=== PATIENT | female | born 1995 | race Caucasian/White ===

== ENCOUNTER 2021-04-23 03:07 | Emergency (ER) | payer OTHER ==
[~2021-04-23] VITALS: Ht 170.2 cm; Wt 54.4 kg
[2021-04-23] MEDS ORDERED: [UNRECOGNIZED DRUG - SUPPLY] (03:26)
== END 2021-04-23 13:50 | disposition home or self-care (01) ==
LOC: ER 03:07
DX: K52.9 Noninfective gastroenteritis and colitis, unspecified (principal); R50.9 Fever, unspecified; Z11.52 Encounter for screening for COVID-19

== ENCOUNTER 2024-06-30 12:56 | Emergency (ER) | payer OTHER ==
[~2024-06-30] VITALS: Ht 170.2 cm; Wt 59.0 kg
[~2024-06-30 12:56] MED LIST: [UNRECOGNIZED DRUG - SUPPLY]
[2024-06-30] MEDS ORDERED: KETOROLAC TROMETHAMINE 60 MG VIAL IM ONE ×2 (13:36→13:45)
[2024-06-30 14:22] LABS: HEMATOCRIT 32.2 % (36.0-45.00); HEMOGLOBIN 10.6 g/dL (12.0-15.00); MEAN CELL VOLUME 80.3 fL (80.00-100.00); MEAN CORPUSCULAR HEMOGLOBIN 26.3 pg (27.00-32.0); MEAN CORPUSCULAR HGB CONC 32.7 g/dl (32.0-36.0); PLATELET COUNT 361 K/uL (150-450); RED BLOOD COUNT 4.01 M/uL (4.00-6.00); RED CELL DISTRIBUTION WIDTH 13.8 % (11.5-14.5)
[2024-06-30 14:50] LABS: ALBUMIN 3.4 gm/dL (3.4-5.0); ALKALINE PHOSPHATASE 69 U/L (50-136); ALT/SGPT 24 U/L (12-78); ANION GAP 6 (10.0-20.0); AST/SGOT 20 U/L (15-37); BILIRUBIN TOTAL 0.22 mg/dL (0.3-1.2); BLOOD UREA NITROGEN 9 mg/dL (7-18); BUN CREA RATIO 16 (7.0-25.0); CALCIUM 9.3 mg/dL (8.5-10.1); CARBON DIOXIDE 29 mEq/L (21-32); CHLORIDE 107 mmol/L (98-107); CREATININE SERUM 0.55 mg/dL (0.55-1.02); GFR 128.92; GLOBULINA 4.1 G/DL (2.4-3.5); GLUCOSE FASTING 73 mg/dL (65-100); OSMOLALITY SERUM 273 MOSM/KG (275-295); POTASSIUM 4.34 mEq/L (3.5-5.1); SODIUM 138 mmol/L (136-145); TOTAL PROTEIN 7.5 gm/dL (6.4-8.2)
[2024-06-30 14:52] LABS: HCG QUANTITATIVE < 1 mUI/mL (1-3)
[2024-06-30 17:49] LABS: URINE APPEARANCE Clear; URINE BILIRRUBIN Negative (NEGATIVE); URINE BLOOD Negative; URINE COLOR Yellow; URINE GLUCOSE Negative (NEGATIVE); URINE KETONE Trace (NEGATIVE); URINE LEUKOCYTE Negative; URINE NITRATE Negative; URINE PROTEIN Negative (NEGATIVE); URINE UROBILINOGEN 0.2 E.U./dl
[2024-06-30 17:54] LABS: URINE BACTERIA 192.7 uL (0.0-1933); URINE EPITHELIAL CELLS 9.4 uL (0.0-38.8); URINE RBC 31.6 uL (0.0-20.8); URINE WBC 2.6 uL (0.0-23.2)
== END 2024-06-30 17:42 | disposition home or self-care (01) ==
LOC: ER 12:58
PROVIDERS: General Practice
DX: N83.202 Unspecified ovarian cyst, left side (principal)